=== PATIENT | female | born 1990 | race American Indian/Alaskan Native ===

== ENCOUNTER 2017-08-15 02:37 | Emergency (ER) | payer SELFPAY ==
[2017-08-15 03:18] VITALS: BP 114/73
[2017-08-15] MEDS ORDERED: DELTASONE PO ONE (06:16)
--- NOTE | 2017-08-15 06:16 | Emergency Department Report ---
ED ENT HPI - General Chief complaint: Sore Throat Stated complaint: POSSIBLE STREP THROAT Time Seen by Provider: 08/15/17 06:08 Source: patient Mode of arrival: Ambulatory Limitations: No Limitations - History of Present Illness Initial comments: A 7-year-old -[place] female comes in complaining of a sore throat 2 days. She denies any sick contact denies any fever chills denies any cough or cold. Patient reports she has a history of strep throat. Extremities take no medications on a daily basis has a past medical history strep throat and is allergic to ibuprofen. Does admit that she's had ibuprofen recently with no rash splint on her she had a rash with taken ibuprofen. MD complaint: sore throat - Related Data Previous Rx's Medication Instructions Recorded Last Taken Type Hydrocodone Bit/Acetaminophen 1 each PO Q6HR #20 tablet 12/24/12 Unknown Rx [Lortab 5-500 Tablet] Loratadine [Claritin] 10 mg PO DAILY #30 tablet 12/24/12 Unknown Rx Prednisone 40 mg PO QDAY #10 tablet 12/24/12 Unknown Rx Hydrocortisone 2.5% [Hytone 2.5% 1 applicatio TP BID #15 tube 02/11/13 Unknown Rx CREAM] hydrOXYzine HCL [Atarax] 25 mg PO Q6HR PRN #20 tablet 02/11/13 Unknown Rx Amoxicillin [Trimox CAP] 500 mg PO Q8H #30 capsule 08/15/17 Unknown Rx traMADol [Ultram 50 MG tab] 50 mg PO Q6HR PRN #20 tablet 08/15/17 Unknown Rx Allergies Allergy/AdvReac Type Severity Reaction Status Date / Time ibuprofen Allergy Rash Verified 12/24/12 08:25 ED Dental HPI - General Chief complaint: Sore Throat Stated complaint: POSSIBLE STREP THROAT Time Seen by Provider: 08/15/17 06:08 Source: patient Mode of arrival: Ambulatory Limitations: No Limitations - Related Data Previous Rx's Medication Instructions Recorded Last Taken Type Hydrocodone Bit/Acetaminophen 1 each PO Q6HR #20 tablet 12/24/12 Unknown Rx [Lortab 5-500 Tablet] Loratadine [Claritin] 10 mg PO DAILY #30 tablet 12/24/12 Unknown Rx Prednisone 40 mg PO QDAY #10 tablet 12/24/12 Unknown Rx Hydrocortisone 2.5% [Hytone 2.5% 1 applicatio TP BID #15 tube 02/11/13 Unknown Rx CREAM] hydrOXYzine HCL [Atarax] 25 mg PO Q6HR PRN #20 tablet 02/11/13 Unknown Rx Amoxicillin [Trimox CAP] 500 mg PO Q8H #30 capsule 08/15/17 Unknown Rx traMADol [Ultram 50 MG tab] 50 mg PO Q6HR PRN #20 tablet 08/15/17 Unknown Rx Allergies Allergy/AdvReac Type Severity Reaction Status Date / Time ibuprofen Allergy Rash Verified 12/24/12 08:25 ED Review of Systems ROS: Stated complaint: POSSIBLE STREP THROAT Other details as noted in HPI ENT: throat pain ED Past Medical Hx - Past Medical History Previous Medical History?: No - Surgical History Past Surgical History?: No - Social History Smoking Status: Never Smoker Substance Use Type: None - Medications Home Medications: Home Medications Medication Instructions Recorded Confirmed Last Taken Type Hydrocodone Bit/Acetaminophen 1 each PO Q6HR #20 tablet 12/24/12 Unknown Rx [Lortab 5-500 Tablet] Loratadine [Claritin] 10 mg PO DAILY #30 tablet 12/24/12 Unknown Rx Prednisone 40 mg PO QDAY #10 tablet 12/24/12 Unknown Rx Hydrocortisone 2.5% [Hytone 2.5% 1 applicatio TP BID #15 tube 02/11/13 Unknown Rx CREAM] hydrOXYzine HCL [Atarax] 25 mg PO Q6HR PRN #20 tablet 02/11/13 Unknown Rx Amoxicillin [Trimox CAP] 500 mg PO Q8H #30 capsule 08/15/17 Unknown Rx traMADol [Ultram 50 MG tab] 50 mg PO Q6HR PRN #20 tablet 08/15/17 Unknown Rx ED Physical Exam - General Limitations: No Limitations General appearance: alert, in no apparent distress - Head Head exam: Present: atraumatic, normocephalic - Eye Eye exam: Present: normal appearance - ENT ENT exam: Present: mucous membranes moist - Expanded ENT Exam Expanded Throat exam: Positive: tonsillar erythema, tonsillomegaly, tonsillar exudate - Neck Neck exam: Present: full ROM, lymphadenopathy - Respiratory Respiratory exam: Present: normal lung sounds bilaterally. Absent: respiratory distress ED Course Vital Signs 08/15/17 03:15 Temperature 98.3 F Pulse Rate 84 Respiratory 18 Rate Blood Pressure 114/73 O2 Sat by Pulse 98 Oximetry ED Medical Decision Making - Medical Decision Making She has been evaluated by this provider fast track. Strep test came back positive. We'll place patient on amoxicillin 500 mg by mouth 3 times a day for 10 days. Trauma to all for pain management. Follow-up with her primary care provider if symptoms persist or gets worse. Critical care attestation.: If time is entered above; I have spent that time in minutes in the direct care of this critically ill patient, excluding procedure time. ED Disposition Clinical Impression: Strep throat Disposition: [id number] TO HOME OR SELFCARE Is pt being admited?: No Does the pt Need Aspirin: No Condition: Stable Instructions: Strep Throat (ED) Additional Instructions: Take antibiotics as prescribed. Take pain medication as needed Prescriptions: Amoxicillin [Trimox CAP] 500 mg PO Q8H #30 capsule traMADol [Ultram 50 MG tab] 50 mg PO Q6HR PRN #20 tablet PRN Reason: Pain Referrals: LOWELL GRIFFITH MD [Primary Care Provider] - 3-5 Days Forms: Work/School Release Form(ED)
== END 2017-08-15 06:30 | disposition home or self-care (01) ==
LOC: ED 02:37
DX: J02.0 Streptococcal pharyngitis (principal); Z88.6 Allergy status to analgesic agent
CPT/HCPCS: 87430; 99283; J7512